=== PATIENT | male | born 1955 | race Caucasian/White ===

== ENCOUNTER 2020-12-27 11:44 | Emergency (ER) | payer MEDICARE, OTHER ==
[~2020-12-27] VITALS: Ht 188 cm; Wt 104.3 kg
[~2020-12-27 11:44] MED LIST: FLUD0.1T PO; MORP15TA PO; TIZA4TAB5 PO
[2020-12-27] MEDS ORDERED: FAMOTIDINE/PF INJ 20 MG/2 ML VIAL IV ONE ×2 (11:54→12:00)
[2020-12-27] MEDS ORDERED: methylPREDNISolone SOD SUCC 125 MG/2ML VIAL ONE (11:54)
[2020-12-27] MEDS ORDERED: EPINEPHRINE (1:1000) 1 MG/ML AMPUL ONE (11:57)
[2020-12-27] MEDS ORDERED: EPINEPHRINE (1:1000) MDV 30 MG/30ML VIAL SUBCUT ONE (12:00)
[2020-12-27] MEDS ORDERED: IV NS 0.9% 1,000 ML BAG IV ONE (12:00)
[2020-12-27] MEDS ORDERED: methylPREDNISolone SOD SUCC 125 MG/2ML VIAL IV ONE (12:00)
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
[2020-12-27] MEDS ORDERED: FAMO-131 PO (14:03)
[2020-12-27] MEDS ORDERED: PRED20TA PO (14:03)
--- NOTE | 2020-12-27 14:09 | NUR ---
NO TNOTED FURTHER REACTION AND PT VERBALIZED HE IS BACK TO IS 100% NORMAL.
[2020-12-27 14:10] VITALS: BP 135/86
--- NOTE | 2020-12-27 14:10 | NUR ---
Patient discharged to home in stable condition. Written and verbal after care instructions given. Patient verbalizes understanding of instruction.IV removed. Catheter intact and site benign. Pressure and 4x4 applied to site. No bleeding noted. Pt ambulatory with a steady gait
== END 2020-12-27 14:16 | disposition home or self-care (01) ==
LOC: ER 11:58
DX: T63.441A Toxic effect of venom of bees, accidental (unintentional), initial encounter (principal); R06.02 Shortness of breath; M19.90 Unspecified osteoarthritis, unspecified site; G89.29 Other chronic pain; Z98.890 Other specified postprocedural states; Z88.6 Allergy status to analgesic agent; Z91.030 Bee allergy status; Z79.899 Other long term (current) drug therapy; Y92.89 Other specified places as the place of occurrence of the external cause
CPT/HCPCS: 96361; 96372; 96374; 96375; 99284; J0171 ×2; J2930; J3490; J7030